=== PATIENT | female | born 1980 | race Caucasian/White ===

== ENCOUNTER 2017-01-06 22:33 | Emergency (ER) | payer OTHER ==
[~2017-01-06] VITALS: Ht 162.6 cm; Wt 84.7 kg
[~2017-01-06 22:33] MED LIST: CALCTAB5 PO; MTR600X PO; OXYC5TAB PO; PRENTAB26 PO
[2017-01-06 22:43] VITALS: TEMP 37.1; Ht 162.6 cm; Wt 84.7 kg
[2017-01-07] MEDS ORDERED: CHOL2000 PO (00:08)
[2017-01-07] MEDS ORDERED: OSEL75CA12 PO (00:41)
[2017-01-07] MEDS ORDERED: OSELTAMIVIR PHOSPHATE 75 MG CAP PO STA (00:41)
[2017-01-07 01:03] VITALS: BP 117/69; PULSE 82; O2SAT 95
[2017-01-07 01:52] LABS: INFLUENZA A PCR Neg for Influ A (NEG); INFLUENZA B PCR Neg for Influ B (NEG)
--- NOTE | 2017-01-07 05:18 | EMERGENCY ROOM VISIT NOTE ---
History First contact with patient: 23:29 Chief Complaint: FEVER Stated Complaint: FEVER, CHILLS, COUGH, SORE THROAT History of Present Illness The patient is a 36 year old female who presents to the Emergency Room with complaints of fever, chills, cough, congestion body aches and pains for the past day. Her child was sick with similar symptoms. She did receive the flu vaccine. Patient denies neck stiffness, sore throat, chest pain, dyspnea, abdominal pain, vomiting, diarrhea. No recent travel. Review of Systems See HPI for pertinent positives & negatives. A total of 10 systems reviewed and were otherwise negative. Past Medical/Surgical History Medical Problems: (1) No pertinent past medical history (2) Oligohydramnios Social History Smoking Status: Former Smoker Alcohol Use: occasionally Marital Status: single Occupation Status: employed Current/Historical Medications Scheduled Cholecalciferol (Vitamin D3), 2,000 INTER.UNIT PO DAILY Oseltamivir (Tamiflu), 75 MG PO BID Allergies Coded Allergies: Penicillins (Unverified Allergy, Mild, 01/07/17) Sulfa Drugs (Unverified Allergy, Mild, 01/07/17) Physical Exam Vital Signs Date Time Temp Pulse Resp B/P Pulse Ox O2 Delivery O2 Flow Rate FiO2 01/07/17 01:03 82 20 117/69 95 01/06/17 22:43 37.1 81 18 138/82 95 Room Air Pain Rating (0-10): 0 Physical Exam VITALS: Vitals are noted on the nurse's note and reviewed by myself. Vital signs stable. GENERAL: Pleasant female mildly ill-appearing, in no acute distress, nondiaphoretic, well-developed well-nourished. SKIN: The skin was without rashes, erythema, edema, or bruising. There is no tenting of the skin. Capillary reflex less than 2 seconds. HEAD: Normocephalic atraumatic. EARS: External auditory canals clear, tympanic membranes pearly cameron without erythema or effusion bilaterally. EYES: Pupils equal round and reactive to light and accommodation. Conjunctivae without injection, sclerae without icterus. Extraocular movements intact. NOSE: Patent, turbinates without inflammation or discharge. No sinus tenderness. MOUTH: Mucous membranes moist. Pharynx without erythema or exudate. Uvula midline. Airway patent. Tongue does not deviate. NECK: Supple without nuchal rigidity. No lymphadenopathy. No thyromegaly. Cervical spine is nontender. No JVD. HEART: Regular rate and rhythm without murmurs gallops or rubs. LUNGS: Clear to auscultation bilaterally without wheezes, rales or rhonchi. No dullness to percussion. No retractions or accessory muscle use. ABDOMEN: Positive bowel sounds x 4. Normal tympanic percussion. Soft, nontender, without masses or organomegaly. Ledezma sign negative. No guarding or rebound tenderness. MUSCULOSKELETAL: No muscle atrophy, erythema, or edema noted. NEURO: Patient was alert and oriented to person place and time. Normal sensation to light and sharp touch. No focal neurological deficits. Medical Decision & Procedures Laboratory Results Test 01/06/17 23:45 Influenza Type A (RT-PCR) Neg for Influ A (NEG) Influenza Type A Antigen Neg for Influ A (NEG) Influenza Type B Antigen Neg for Influ B (NEG) Influenza Type B (RT-PCR) Neg for Influ B (NEG) Medications Administered Medications (Trade) Dose Ordered Sig/Jesse Route Start Time Stop Time Status Last Admin Dose Admin Oseltamivir Phosphate (Tamiflu Cap) 75 mg NOW STAT PO 01/07/17 00:41 01/07/17 00:42 DC 01/07/17 00:53 75 MG ED Course Prior records/ancillary studies reviewed. Triage Nursing notes reviewed. Additional history obtained from family The patient's history was concerning for fever. Differential diagnosis: Etiologies such as viral syndrome, otitis, pharyngitis, pneumonia, influenza, meningitis, urinary tract infection, sepsis, bacteremia, as well as others were entertained. Physical examination: As above ER treatment provided: Tamiflu On reassessment the patient felt better. Diagnostics interpreted by me: The labs revealed negative influenza but child was positive for influenza This appears to be consistent with influenza. This could be a false negative. Child is positive for influenza. Symptoms and history seem consistent with influenza. She's been around other people who are positive for influenza A. Patient was started on antivirals. She is advised to take medications as directed, rest, stay well-hydrated and to take all medicines as directed. She is advised to follow-up with family care in a few days or here in the ER sooner for high fevers, lethargy, vomiting, neck stiffness, worsening signs or symptoms or as needed. By the evaluation outlined above emergent etiologies such as otitis, pharyngitis, pneumonia, meningitis, urinary tract infection, sepsis, bacteremia, as well as others were deemed relatively unlikely. The pt informed about the findings as listed above. All questions were answered and pleased with the treatment. Return instructions were outlined and the patient was discharged in stable condition. Outpatient prescription management: Tamiflu Referral: The patient was referred back to their primary care physician for follow-up in 2 to 3 days for a recheck of the current condition. Medical Decision As above Impression Primary Impression: Influenza Departure Information Dispostion Home / Self-Care Condition GOOD Prescriptions Oseltamivir (Tamiflu) 75 Mg Cap 75 MG PO BID for 5 Days, #10 CAP Prov: Ximena Kaba .MINERVA 01/07/17 Forms HOME CARE DOCUMENTATION FORM, Work Instructions, Return To Work: 2 days IMPORTANT VISIT INFORMATION Patient Instructions Fever - [facility], Former[facility], Rapid Influenza Antigen Nasal or Throat Swab Additional Instructions Tamiflu 75 m tablet twice a day for 5 days.Any medication can cause an allergic reaction, stop the pills immediately and return to the ER for rash, hives, breathing difficulties, or swelling. Acetaminophen(Tylenol) may be used for fever or pain. Use 1000mg every six hours as needed. Avoid using more than 3000mg in a 24 hour period. (AND/OR) Ibuprofen(Motrin, Advil) may be used for fever or pain. Use 600mg every six hours as needed. Take with food. Avoid using more than 2400mg in a 24 hour period. Do not use 2400mg per day for more than three consecutive days without physician direction. Prolonged inappropriate use can lead to stomach upset or ulcers. Afrin nasal spray: 2-3 sprays to each nostril twice daily as needed for congestion. Do not use for more than 3-4 days because it can lead to worsening rebound congestion. Pseudoephedrine(Sudaphed): 30-60mg every 6 hours as needed for nasal congestion. Do not take this with other stimulant products or supplements. Rest and drink plenty of fluids. Controlling your fever with Tylenol and Ibuprofen as above will make you feel better. Wash your hands after nose blowing, sneezing, or coughing. Most germs are spread through contact, therefore improper hygiene may result in your close contacts and loved ones becoming ill just like you. Continue current medications. Return to the ER for severe headache, neck stiffness, chest pain, difficulty breathing, fevers, vomiting, worsening of your condition, or as needed. Follow up with your primary physician this week for a recheck of your current condition. Work Instructions Return To Work: 2 days
== END 2017-01-07 01:05 | disposition home or self-care (01) ==
LOC: C.EDB 22:34 → C.EDC 01-07 01:05
DX: J11.1 Influenza due to unidentified influenza virus with other respiratory manifestations (principal); Z87.891 Personal history of nicotine dependence

== ENCOUNTER 2020-06-17 15:33 | Inpatient (IN) ==
[~2020-06-17 15:33] MED LIST changes: -CALCTAB5 PO; +CEFAZOLIN 2000MG 2,000 MG/15 ML SYR IV SCH; +CITRIC ACID/SODIUM CITRATE 15 ML UDC PO SCH; -MTR600X PO; -OXYC5TAB PO; -PRENTAB26 PO
--- OUTSIDE RECORDS SUMMARY | 2020-06-17 15:36 | External Medical Summary | Continuity of Care Document ---
:1980 Author Name Patricia M.Terrence Address Unavailable Unavailable , Care Team Providers Name Role Phone [facility] M.D. Unavailable [email or web address] Loss Of Hair From Head Depression (311) (F32.9) Abnormal menses (626.9) (N92.6) Encounter for screening for infections w ith predominantly sexual mode of transmission (V74.5) (Z11.3) Encounter for initial prescription of contraceptives (V25.02 ) (Z30.019) Abnormal weight gain (783.1) (R63.5) Allergic conjunctivitis (372.14) (H10.10) of unknown anatomic location (V23.87) (O36.80X0) Encounter for routine pelvic examination (V72.31) (Z01.419) Screening for STD (sexually transmitted disease) (V74.5) (Z1 1.3) Abnormal uterine bleeding (626.9) (N93.9) Allergies and Adverse Reactions Erythromycin Derivatives (Allergy) Penicillins (Allergy) Sulfa Drugs (Allergy) Medications No Reported Medications Refills: 0 Procedures History of Colposcopy Status: Completed History of Cervix Cryosurgery Status: Co mpleted Encounter for initial prescription of contraceptives History of Section Status: Comp leted History of wisdom tooth extraction Statu s: Completed Immunizations Tdap On: 28-Dec-2009 Tdap On: 11-Mar-2016 Influenza On: 03-Oct-2017 Family History Brother Family history of Type 1 Diabetes Mellitus Status: Active Grandmother Family history of Breast Cancer (V16.3) Status: Active Grandmother Family history of Breast Cancer (V16.3) Status: Active Father Family history of Alcohol abuse (305.00) (F10.10) Status: Ac tive Grandmother Family history of malignant neoplasm (V16.9) (Z80.9) Status: Active Social History - Smoking Status Ex-smoker Plan of Treatment Planned Observations Planned Goals not documented Results No Known Results Results not documented Encounters Appointment; Martín Otero M.D. 01-Nov-2018 16:00 Encounter Diagnosis: Problem not documented Appointment; Gisela Bingham CRNP 24-Oct-2018 8:20 Encounter Diagnosis: Problem not documented
[2020-06-17] MEDS ORDERED: LACTATED RINGER'S 1,000 ML IV SCH ×2 (16:00→19:15)
--- NOTE | 2020-06-17 16:08 | History & Physical Report ---
Date of Service June 17, 2020 Assessment & Plan (1) Oligohydramnios: 40 yo at 40.3 wks with h/o placental abruption, Prior C section, now with oligohydramnios Desires repeat Csection, declines TOLAC/ See HPI VSS Afebrile doing well FHR reassuring Plan to admit, monitor and get ready for Repeat Csection All questions were answered (2) History of delivery: (3) History of placenta abruption: History of Present Illness Primary Care Provider: Hermelindo Zhao, III, AUTHORIZER Patient is a 40 yo female at 40.3 wks who was sent from office for SARA of 3 cm and reactive NST. She has no complaints, but has concerns. No ctxs/ LOF/VB +FM's 1) She has h/o Prior Csection which was done as emergency due to hemorrhage, placenta abruption during induction of labor with Cervidil. She was planning for TOLAC/ if she would come in labor. Now she is concerned about IOL due to her history above and not in labor today She desires Repeat section Understands the risks of major surgery as bleeding, infection, injury to surrounding organs, bowels, bladder, ureters, blood cloths in legs/ lungs, adhesion and scar formation. All questions were answered. 2) AMA 3) Asthma 4) Anxiety depression, not on meds 5) GBS+ 6)ADHD Allergies Allergy/AdvReac Type Severity Reaction Status Date / Time Penicillins Allergy Mild Unverified 01/07/17 00:09 Sulfa (Sulfonamide Allergy Mild Unverified 01/07/17 00:09 Antibiotics) Home Medications Home Medications Medication Instructions Recorded Confirmed Type CHOLECALCIFEROL (VITAMIN D3) 2,000 inter.unit PO DAILY 90 Days 01/07/17 History #0 cap Patient History Social History Smoking Status: Never smoker Review of Systems All systems reviewed & are unremarkable except as noted in HPI & below Physical Exam Constitutional: WD/WN, vitals as above well developed and well nourished Comfortable, NAD Gastrointestinal (Abdomen): normal bowel sounds, soft, nontender, no hepatosplenomegaly (Gravid) Genitourinary: OB Exam Monitor Tracing: + external uterine monitor used (no ctxs) and + category I Results & Data Vital Signs (Past 12 Hours) Vital Signs Temp Pulse Resp BP 06/17/20 15:34 36.8 C 79 20 111/62
[2020-06-17 16:21] LABS: Basophils # (auto) 0.02 K/uL (0-0.2); Basophils % (auto) 0.2 %; Eosinophils # (auto) 0.15 K/uL (0-0.5); Eosinophils % (auto) 1.7 %; Hematocrit (blood only) 36.6 % (37-47); Hemoglobin 12.4 g/dL (12.0-16.0); Immature Granulocytes # (auto) 0.04 K/uL (0.00-0.02); Immature Granulocytes % (auto) 0.4 %; Lymphocytes # (auto) 2.45 K/uL (1.2-3.4); Lymphocytes % (auto) 27.1 %; Mean Corpuscular Hemoglobin 31.1 pg (25-34); Mean Corpuscular Volume 91.7 fL (80-100); Mean Platelet Volume 8.8 fL (7.4-10.4); Monocytes # (auto) 0.47 K/uL (0.11-0.59); Monocytes % (auto) 5.2 %; Neutrophils # (auto) 5.91 K/uL (1.4-6.5); Neutrophils % (auto) 65.4 %; Platelet Count 290 K/uL (130-400); RDW Coefficient of Variation 12.1 % (11.5-14.5); Red Blood Count 3.99 M/uL (4.2-5.4); White Blood Count 9.04 K/uL (4.8-10.8)
[2020-06-17 16:29] LABS: Mean Corpuscular Hgb Conc 33.9 g/dL (32-36)
[2020-06-17] MEDS ORDERED: ONDANSETRON INJ 2 MG/ML 2 ML VIAL ONE (17:15)
[2020-06-17] MEDS ORDERED: OXYTOCIN 10 UNITS/ML VIAL ONE (17:15)
[2020-06-17] MEDS: LACTATED RINGER'S 1,000 ML IV SCH (17:15)
[2020-06-17] MEDS ORDERED: PHENYLEPHRINE 100MCG/ML 5ML SYR ONE (17:15)
[2020-06-17] MEDS ORDERED: fentaNYL citrate 100 MCG/2 ML VIAL ONE (17:16)
[2020-06-17] MEDS ORDERED: MoRPHine SULFATE PF 1 MG/ML 10 ML AMP/VIAL ONE (17:16)
--- NOTE | 2020-06-17 17:26 | Anesthesiology Consultation ---
Date of Service June 17, 2020 Assessment & Plan (1) Encounter for pre-operative examination: Chart Review Chart Review: Acceptable Risk for Surgery and Patient NOT seen in Pre Admission Testing Consults Requested none History Surgery Operation Date: 06/17/20 15:55 Proposed Procedures p Section in LD - Sunny Espinosa MD Height/Weight Height: 5 ft 3.75 in Weight: 79.832 kg Allergies Allergy/AdvReac Type Severity Reaction Status Date / Time Penicillins Allergy Mild Rash Unverified 06/17/20 16:40 Sulfa (Sulfonamide Allergy Mild Rash Unverified 06/17/20 16:40 Antibiotics) Medications Home Medications Medication Instructions Recorded Confirmed Last Taken PNV cmb#95-ferrous fumarate-FA 1 tab PO DAILY 06/17/20 06/17/20 06/16/20 22:30 [] ascorbic acid (vitamin C) [Vitamin 500 mg PO DAILY 06/17/20 06/17/20 06/16/20 10:00 C] docusate sodium [Colace] 100 mg PO DAILY 06/17/20 06/17/20 06/16/20 10:00 ferrous sulfate [iron] 325 mg PO DAILY 06/17/20 06/17/20 06/16/20 10:00 NPO Date Last Intake of Fluids: 06/17/20 Time Last Intake of Fluids: 15:00 Date Last Intake of Solids: 06/17/20 Time Last Intake of Solids: 08:00 Past Medical History Medical History ADHD AMA (advanced maternal age) multigravida 35+ Anxiety and depression Asthma Oligohydramnios Thyroid nodule Exercise / Class Metabolic Activity II 4-5 Yardwork/Stairs/Walk up hill Past Family History Family History Mother Diabetes Brother Diabetes Grandmother Breast cancer Grandmother (Paternal) Breast cancer Past Surgical History Surgical History Previous section [place] teeth removed Past Anesthesia History No Hx of Anesthesia Complications and No Family Hx of Anesthesia Complications History of PONV No Hx of PONV and No Hx of Motion Sickness Social History Smoking Status: Never smoker tobacco type: cigarettes Smoking End Date: 9 years ago Hx Alcohol Use: No Hx Substance Use: No Physical Exam Vital Signs Last Vital Signs Temp 36.8 C 06/17/20 15:41 Pulse 79 06/17/20 15:41 Resp 20 06/17/20 15:41 BP 111/62 06/17/20 15:41 Testing Laboratory Results 06/17/20 16:09
[2020-06-17] MEDS ORDERED: NALOXONE HCL 0.08 MG in SYRINGE 1.8 ML IV PRN (18:15)
[2020-06-17] MEDS ORDERED: MEPERIDINE HCL 25 MG/ML CARP/VIAL IV PRN (18:15)
[2020-06-17] MEDS ORDERED: DiphenhydrAMINE HCL 50 MG/ML VIAL IV PRN (18:15)
[2020-06-17] MEDS ORDERED: MoRPHine SULFATE 2 MG/ML CARP IV PRN (18:15)
[2020-06-17] MEDS ORDERED: NALOXONE HCL 1 MG in SODIUM CHLORIDE 0.9% 1000ML 1,000 ML IV PRN (18:15)
[2020-06-17] MEDS ORDERED: LACTATED RINGER'S 500 ML IV PRN (18:15)
[2020-06-17] MEDS ORDERED: PROMETHAZINE HCL 25 MG in SODIUM CHLORIDE 0.9% 50 ML IV PRN (18:15)
[2020-06-17] MEDS ORDERED: NALOXONE HCL 0.4 MG/1 ML VIAL/CARP IV PRN (18:15)
[2020-06-17] MEDS ORDERED: SODIUM CHLORIDE 0.9% 1000ML 1,000 ML IV SCH (18:15)
[2020-06-17] MEDS ORDERED: MoRPHine SULFATE PF 1 MG/ML 10 ML AMP/VIAL INT SPINAL ONE (18:15)
[2020-06-17] MEDS ORDERED: NO NARCOTICS OR SEDATIVES SCH (18:15)
[2020-06-17] MEDS ORDERED: ONDANSETRON INJ 2 MG/ML 2 ML VIAL IV PRN (18:15)
[2020-06-17] MEDS ORDERED: ePHEDrine sulfate 50 MG/ML AMP IV PRN (18:15)
[2020-06-17] MEDS ORDERED: FLOSEAL HEMOSTATIC MATRIX 10ML TOP ONE (18:47)
[2020-06-17] MEDS ORDERED: MAGNESIUM HYDROXIDE SUSP 30 ML UDC PO PRN (19:15)
[2020-06-17] MEDS ORDERED: BENZOCAINE 20% AER SPR 82.5 GM CAN EXT PRN (19:15)
[2020-06-17] MEDS ORDERED: DIPHTHERIA/TETANUS/PERTUSSIS 0.5 ML SYR/VIAL IM ONE (19:15)
[2020-06-17] MEDS ORDERED: HYDROCORTISONE ACETATE 25 MG SUPP PR PRN (19:15)
[2020-06-17] MEDS ORDERED: MEASLES, MUMPS & RUBELLA VIRUS VIAL SQ ONE (19:15)
[2020-06-17] MEDS ORDERED: SUPERCREAM 0.870% 15 GM JAR EXT PRN (19:15)
[2020-06-17] MEDS ORDERED: SENNA 8.6 MG TAB PO PRN (19:15)
--- NOTE | 2020-06-17 19:15 | Post Operative Brief Note ---
Immediate Post Op Note v1 Date of Surgery June 17, 2020 Pre & Post Diagnosis Operation Date: 06/17/20 15:55 Pre-Op Diagnosis: Previous cesearan section. Desires repeat section Post-Op Diagnosis: same I identified the patient and participated in the time-out.: Yes Procedure Operation Date: 06/17/20 15:55 Actual Procedures p Repeat cesearan section for living female child at 1827 - Sunny Morel MD Surgeon Sunny Espinosa MD Mill [employer]er Donna Quigley RN Estimated Blood Loss 600 Findings Consistent with Post-Op Diagnosis Drains Oneal Catheter (inserted following spinal analgesia without difficulty. Draining clear yellow urine. Anesthesia to monitor urine output intraoperatively) Anesthesia Type Spinal Disposition Accompanied Patient To Recovery: Yes Disposition: L&D
[2020-06-17] MEDS: OXYTOCIN 20 UNITS in LACTATED RINGER'S 1,000 ML IV SCH (19:48)
--- NOTE | 2020-06-17 20:20 | Anesthesiology Progress Note ---
Date of Service June 17, 2020 Anesthesia Post Procedure Vital Signs Vital Signs: Temp Pulse Resp BP Pulse Ox 06/17/20 20:16 75 96 06/17/20 20:14 74 18 117/53 L 06/17/20 20:11 73 96 06/17/20 20:06 72 97 06/17/20 20:03 74 18 109/65 06/17/20 20:01 72 97 06/17/20 19:56 75 96 06/17/20 19:54 77 18 108/62 06/17/20 19:51 80 100 06/17/20 19:46 71 98 06/17/20 19:43 74 18 110/59 L 06/17/20 19:41 80 99 06/17/20 19:36 80 100 06/17/20 19:33 72 18 114/63 06/17/20 19:31 77 89 L 06/17/20 19:26 69 98 06/17/20 19:22 36.5 C 72 18 109/56 L 06/17/20 15:41 36.8 C 79 20 111/62 06/17/20 15:34 36.8 C 79 20 11162 Transfer of Care Handoff Completed per policy Notes Mental Status: alert / awake / arousable and participated in evaluation Patient Amnestic to Procedure: No Nausea / Vomiting: adequately controlled Pain: adequately controlled Airway Patency, RR, SpO2: stable & adequate BP & HR: stable & adequate Hydration State: stable & adequate Neuraxial Anesthesia: was administered and sensory block is resolving Anesthetic Complications: no major complications apparent and Pt Satisfied with anesthetic care
[2020-06-17] MEDS: KETOROLAC 30 MG/ML VIAL IV PRN (21:02)
--- NOTE | 2020-06-18 01:30 | Operative Report (OR) ---
DATE OF OPERATION: 06/17/2020 PREOPERATIVE DIAGNOSES: The patient is a 40-year-old G4, P1-0-2-1 at 40 weeks and 3 days of gestation with oligohydramnios. History of prior and placental abruption. Desires repeat . POSTOPERATIVE DIAGNOSES: The patient is a 40-year-old G4, P1-0-2-1 at 40 weeks and 3 days of gestation with oligohydramnios. History of prior and placental abruption. Desires repeat . PROCEDURE: Repeat low transverse with Pfannenstiel skin incision. SURGEON: Sunny Espinosa MD ANALYST COMPETITIVE INTELLIGENCE: Donna Quigley RN ESTIMATED BLOOD LOSS: 600 mL. DRAINS: Oneal catheter drained 100 mL of clear urine. ANESTHESIA: Spinal, Dr. Amador. COMPLICATIONS: None. FINDINGS: Baby was a viable female , Apgars 9/9, delivered in cephalic presentation, weight was 3520 grams. Maternal findings, normal uterus, fallopian tubes and ovaries. DESCRIPTION OF PROCEDURE: The patient was taken to the operating room where spinal anesthesia was given without difficulty. She was placed in dorsal supine position with a leftward tilt. She was prepared and draped in usual sterile fashion. Pfannenstiel skin incision was made from the old incision scar. It was carried through to the underlying layer of fascia with the Bovie. Fascia was incised in the midline and incision was extended laterally with the help of Bowers scissors. Lower aspect of the fascial incision was then grasped with 2 Aashish clamps, elevated, underlying rectus muscles were dissected off sharply with Bowers scissors. Upper aspect of the fascial incision was grasped with 2 Aashish clamps, elevated, underlying rectus muscles were dissected off sharply with Bowers scissors. Rectus muscles were in the midline. Peritoneum was entered bluntly. Peritoneal incision was extended superiorly and inferiorly with good visualization of the bladder. Bladder blade was inserted. Vesicouterine peritoneum was identified, grasped with pickups, entered sharply with Metzenbaum scissors. Bladder flap was created digitally and bladder blade was reinserted. Lower uterine segment was incised in a transverse fashion, then uterine incision was extended laterally with the help of fingers. Membranes were ruptured, clear fluid was obtained and and baby's head was delivered without difficulty. Shoulders were delivered with minimal traction and mouth and nose were suctioned. Cord was clamped x2 and cut at 1-minute delay. Baby was handed to the waiting property disposal manager and nursery team. Placenta was delivered manually as intact and complete. Uterus was exteriorized, cleared of all clots and debris. Uterine incision was repaired with 0 Vicryl in a running locked fashion and a second imbricating layer was placed with another 0 Vicryl in a running locked fashion. Figure of 8 stitches were placed in the middle of incision. Excellent hemostasis was achieved. Posterior cul-de-sac was irrigated with normal saline and suctioned. Ovaries and fallopian tubes were found to be normal and then uterus was returned to the abdomen. Pelvis was irrigated with warm normal saline and suctioned and uterine incision was inspected for several minutes and it was hemostatic. Parietal peritoneum was reapproximated with 0 Vicryl in a running fashion bringing the rectus fascia with the same suture in a running fashion. Under the fascia and rectus muscles were hemostatic. Rectus fascia was reapproximated with 0 Vicryl in a running fashion. Subcuticular Fat tissue was reapproximated with 3-0 Vicryl in a running fashion. Skin was closed with 4-0 Monocryl in a subcuticular fashion. The patient tolerated the procedure well. Sponge, lap, needle count was correct x3. Mom and baby tolerated the procedure well. Mom was taken to recovery room in stable condition. No complications happened and I was present during whole procedure. I attest to the content of the Intraoperative Record and any orders documented therein. Any exceptions are noted below. LUCIA
[2020-06-18] MEDS: DOCUSATE SODIUM 100 MG CAP PO SCH ×3 (03:10→19:50)
[2020-06-18] MEDS: SIMETHICONE 80 MG CHEW PO SCH ×5 (03:10→19:50)
[2020-06-18] MEDS: LACTATED RINGER'S 1,000 ML IV SCH (03:54)
[2020-06-18] MEDS: OXYTOCIN 20 UNITS in LACTATED RINGER'S 1,000 ML IV SCH (03:56)
[2020-06-18] MEDS: KETOROLAC 30 MG/ML VIAL IV PRN (05:07)
--- NOTE | 2020-06-18 06:00 | Obstetrical Progress Note ---
Date of Service June 18, 2020 Assessment & Plan Admission and Anticipated Discharge Date Admission Date: June 17, 2020 Subjective Patient is seen and examined. She feels well, no complaints. No Pain. Not OOB Bleeding is minimal No fever/ chills/ CP/ SOB/ dizziness/N&V/ Leg pain Breast feeding without problems Vital Signs Temp Pulse Pulse Resp BP BP Pulse Ox 06/18/20 05:00 16 99 06/18/20 02:50 36.8 C 74 16 119/75 97 06/18/20 01:55 14 99 06/18/20 00:50 16 100 06/17/20 23:45 16 99 06/17/20 22:45 16 99 06/17/20 22:15 36.7 C 72 18 111/65 99 06/17/20 22:00 18 100 06/17/20 21:31 72 18 110/63 98 06/17/20 21:26 88 98 06/17/20 21:21 75 98 06/17/20 21:16 72 99 06/17/20 21:11 74 97 06/17/20 21:06 69 98 06/17/20 21:01 75 97 06/17/20 20:56 71 98 06/17/20 20:53 78 18 114/66 06/17/20 20:51 71 98 06/17/20 20:46 74 96 06/17/20 20:41 83 97 06/17/20 20:39 77 94 06/17/20 20:36 80 96 06/17/20 20:31 91 H 96 06/17/20 20:26 70 96 06/17/20 20:23 77 18 129/55 L 06/17/20 20:21 85 91 06/17/20 20:20 87 94 06/17/20 20:16 75 96 06/17/20 20:14 74 18 117/53 L 06/17/20 20:11 73 96 06/17/20 20:06 72 97 06/17/20 20:03 74 18 109/65 06/17/20 20:01 72 97 06/17/20 19:56 75 96 06/17/20 19:54 77 18 108/62 06/17/20 19:51 80 100 06/17/20 19:46 71 98 06/17/20 19:43 74 18 110/59 L 06/17/20 19:41 80 99 06/17/20 19:36 80 100 06/17/20 19:33 72 18 114/63 06/17/20 19:31 77 89 L 06/17/20 19:26 69 98 06/17/20 19:22 36.5 C 72 18 109/56 L 06/17/20 15:41 36.8 C 79 20 111/62 06/17/20 15:34 36.8 C 79 20 111/62 Intake and Output 06/17/20 06/17/20 06/18/20 14:59 22:59 06:59 Intake Total 2001 Output Total 250 / 250 Balance -250 / 1752 2001 Intake: IV 2001 Lr 1,000 ml @ 125 mls/hr IV . 1000 / 1000 Q8H DEREK Rx#:[id number] Pitocin 20 Units In Lr 1,000 ml 1002 / 1002 @ 125 mls/hr IV .Q8H1M DEREK Rx# :[id number] Output: Urine Amount (Catheter) 250 / 250 Oneal/Indwelling 250 / 250 Other: Weight 79.832 kg Patient Weight 06/18/20 06:59 Weight 79.832 kg Intake & Output 06/17/20 06/17/20 06/18/20 14:59 22:59 06:59 Intake Total 2001 Output Total 250 / 250 Balance -250 / 1752 2001 Weight 79.832 kg Intake: IV 2001 Lr 1,000 ml @ 125 mls/hr IV . 1000 / 1000 Q8H DEREK Rx#:[id number] Pitocin 20 Units In Lr 1,000 ml 1002 / 1002 @ 125 mls/hr IV .Q8H1M DEREK Rx# :[id number] Output: Urine Amount (Catheter) 250 / 250 Oneal/Indwelling 250 / 250 Lab Results 06/17/20 06/17/20 06/17/20 Range/Units 16:09 16:09 16:29 WBC 9.04 (4.8-10.8) K/uL RBC 3.99 L (4.2-5.4) M/uL Hgb 12.4 (12.0-16.0) g/dL Hct 36.6 L (37-47) % MCV 91.7 (80-100) fL MCH 31.1 (25-34) pg MCHC 33.9 (32-36) g/dL RDW Std Deviation 41.0 (36.4-46.3) fL RDW Coeff of Iam 12.1 (11.5-14.5) % Plt Count 290 (130-400) K/uL MPV 8.8 (7.4-10.4) fL Immature Gran % (Auto) 0.4 % Neut % (Auto) 65.4 % Lymph % (Auto) 27.1 % Love % (Auto) 5.2 % Eos % (Auto) 1.7 % Baso % (Auto) 0.2 % Neut # (Auto) 5.91 (1.4-6.5) K/uL Lymph # (Auto) 2.45 (1.2-3.4) K/uL Love # (Auto) 0.47 (0.11-0.59) K/uL Eos # (Auto) 0.15 (0-0.5) K/uL Baso # (Auto) 0.02 (0-0.2) K/uL Immature Gran # (Auto) 0.04 H (0.00-0.02) K/uL COVID-19 PCR NEGATIVE (Negative) Blood Type O Positive Antibody Screen NEGATIVE PE: General: Alert, orientedx3, NAD CVS: S1S2 RRR Lungs; CTAB Abd: soft, NT, ND, BS+, fundus firm, below Umbilicus Incision/ Dressing: Clean, dry, intact Perineum intact, Lochia rubra minimal Ext; NT, no edema, SCD's on AP: 40 yo s/p RC Section, pod# 1 VSS Afebrile doing well Continue routine postop care Encourage ambulation, PO intake All questions were answered Results & Data ([facility]) Vital Signs (Past 12 Hours) Vital Signs Temp Pulse Pulse Resp BP BP Pulse Ox 06/18/20 05:00 16 99 06/18/20 02:50 36.8 C 74 16 119/75 97 06/18/20 01:55 14 99 06/18/20 00:50 16 100 06/17/20 23:45 16 99 06/17/20 22:45 16 99 06/17/20 22:15 36.7 C 72 18 111/65 99 06/17/20 22:00 18 100 06/17/20 21:31 72 18 110/63 98 06/17/20 21:26 88 98 06/17/20 21:21 75 98 06/17/20 21:16 72 99 06/17/20 21:11 74 97 06/17/20 21:06 69 98 06/17/20 21:01 75 97 06/17/20 20:56 71 98 06/17/20 20:53 78 18 114/66 06/17/20 20:51 71 98 06/17/20 20:46 74 96 06/17/20 20:41 83 97 06/17/20 20:39 77 94 06/17/20 20:36 80 96 06/17/20 20:31 91 H 96 06/17/20 20:26 70 96 06/17/20 20:23 77 18 129/55 L 06/17/20 20:21 85 91 06/17/20 20:20 87 94 06/17/20 20:16 75 96 06/17/20 20:14 74 18 117/53 L 06/17/20 20:11 73 96 06/17/20 20:06 72 97 06/17/20 20:03 74 18 109/65 06/17/20 20:01 72 97 06/17/20 19:56 75 96 06/17/20 19:54 77 18 108/62 06/17/20 19:51 80 100 06/17/20 19:46 71 98 06/17/20 19:43 74 18 110/59 L 06/17/20 19:41 80 99 06/17/20 19:36 80 100 06/17/20 19:33 72 18 114/63 06/17/20 19:31 77 89 L 06/17/20 19:26 69 98 06/17/20 19:22 36.5 C 72 18 109/56 L
[2020-06-18 06:51] LABS: Basophils # (auto) 0.02 K/uL (0-0.2); Basophils % (auto) 0.2 %; Eosinophils # (auto) 0.11 K/uL (0-0.5); Eosinophils % (auto) 0.9 %; Hemoglobin 10.9 g/dL (12.0-16.0); Immature Granulocytes # (auto) 0.03 K/uL (0.00-0.02); Immature Granulocytes % (auto) 0.2 %; Lymphocytes % (auto) 16.5 %; Mean Corpuscular Hemoglobin 31.1 pg (25-34); Mean Corpuscular Hgb Conc 34.1 g/dL (32-36); Mean Corpuscular Volume 91.2 fL (80-100); Mean Platelet Volume 8.6 fL (7.4-10.4); Monocytes # (auto) 0.59 K/uL (0.11-0.59); Monocytes % (auto) 4.6 %; Neutrophils # (auto) 9.89 K/uL (1.4-6.5); Neutrophils % (auto) 77.6 %; Platelet Count 207 K/uL (130-400); RDW Coefficient of Variation 12.1 % (11.5-14.5); RDW Standard Deviation 39.8 fL (36.4-46.3); Red Blood Count 3.51 M/uL (4.2-5.4); White Blood Count 12.74 K/uL (4.8-10.8)
--- NOTE | 2020-06-18 08:58 | Obstetrical Progress Note ---
Date of Service June 18, 2020 Assessment & Plan Admission and Anticipated Discharge Date Admission Date: June 17, 2020 Physical Exam Physical Exam: abdomen soft and non tender bowel sounds are present patient is not passing flatus no calf tenderness bandage removed incision is clean and dry vaginal bleeding scant hgb 10.9 Results & Data ([facility]) Vital Signs (Past 12 Hours) Vital Signs Temp Pulse Pulse Resp BP BP Pulse Ox 06/18/20 06:00 16 97 06/18/20 05:00 16 99 06/18/20 02:50 36.8 C 74 16 119/75 97 06/18/20 01:55 14 99 06/18/20 00:50 16 100 06/17/20 23:45 16 99 06/17/20 22:45 16 99 06/17/20 22:15 36.7 C 72 18 111/65 99 06/17/20 22:00 18 100 06/17/20 21:31 72 18 110/63 98 06/17/20 21:26 88 98 06/17/20 21:21 75 98 06/17/20 21:16 72 99 06/17/20 21:11 74 97 06/17/20 21:06 69 98 06/17/20 21:01 75 97 06/17/20 20:56 71 98
[2020-06-18] MEDS: FERROUS SULFATE 325 MG TAB PO SCH (09:13)
[2020-06-18] MEDS: PRENATAL VITAMIN 1 TAB PO SCH (09:13)
[2020-06-18] MEDS ORDERED: MEPERIDINE HCL 50 MG/ML CARP IV PRN (12:15)
[2020-06-18] MEDS ORDERED: PROMETHAZINE HCL 25 MG in SODIUM CHLORIDE 0.9% 50 ML IV PRN (12:15)
[2020-06-18] MEDS ORDERED: DC INTRASPINAL MORPHINE SCH (12:15)
[2020-06-18] MEDS ORDERED: DiphenhydrAMINE HCL 50 MG/ML VIAL IV PRN (12:16)
[2020-06-18] MEDS ORDERED: KETOROLAC 30 MG/ML VIAL IV PRN (12:16)
[2020-06-18] MEDS ORDERED: ONDANSETRON INJ 2 MG/ML 2 ML VIAL IV PRN (12:16)
[2020-06-18] MEDS: IBUPROFEN 600 MG TAB PO PRN ×3 (12:50→21:49)
[2020-06-18] MEDS ORDERED: bisacodyL 5 MG TABEC PO SCH (20:00)
[2020-06-18] MEDS: OXYCODONE/ACETAMINOPHEN 5mg/325mg TAB PO PRN (21:50)
[2020-06-19] MEDS: IBUPROFEN 600 MG TAB PO PRN ×3 (04:25→12:28)
[2020-06-19 06:40] LABS: Hematocrit (blood only) 34.2 % (37-47); Hemoglobin 11.5 g/dL (12.0-16.0)
[2020-06-19] MEDS: FERROUS SULFATE 325 MG TAB PO SCH (08:25)
[2020-06-19] MEDS: SIMETHICONE 80 MG CHEW PO SCH (08:26)
[2020-06-19] MEDS: PRENATAL VITAMIN 1 TAB PO SCH (08:27)
[2020-06-19] MEDS: DOCUSATE SODIUM 100 MG CAP PO SCH (08:27)
--- NOTE | 2020-06-19 09:07 | Obstetrical Progress Note ---
Date of Service June 19, 2020 Assessment & Plan (1) delivery delivered: c/sec day #2 pt wishes to be disch d/c home with instructions Subjective Ambulation: ambulating normally Voiding: no voiding problems Passing Gas:: Yes Diet Tolerance:: clear liquids Lochia:: Small Feeding Type:: breast feeding Review of Systems All systems reviewed & are unremarkable except as noted in HPI & below Physical Exam Constitutional WD/WN, vitals as above well developed and well nourished Eyes PERRL, conjunctivae normal, anicteric sclerae ENMT external ear and nose normal, oropharynx normal Neck trachea midline, no thyromegaly Respiratory normal respiratory effort, lungs clear to auscultation Cardiovascular RRR, no murmur, no edema Chest (Breasts) normal inspection/palpation of breasts Gastrointestinal (Abdomen) normal bowel sounds, soft, nontender, no hepatosplenomegaly Musculoskeletal no cyanosis or clubbing, extremities motor strength 5/5 Skin no rashes, warm and dry + incision (Clean,dry and intact) Neurologic patellar DTR's 2+ bilat, sensation intact Psychiatric A+Ox3, euthymic affect Genitourinary normal external appearance Lymphatic no cervical or axillary lymphadenopathy Results & Data Vital Signs (Past 12 Hours) Vital Signs Temp Pulse Resp BP Pulse Ox 06/19/20 07:30 36.8 C 69 16 96/61 L 97 06/18/20 23:35 36.7 C 78 16 110/66 97
[2020-06-19] MEDS: OXYCODONE/ACETAMINOPHEN 5mg/325mg TAB PO PRN (10:51)
[2020-06-19] MEDS ORDERED: bisacodyL 10 MG SUPP PR PRN (19:15)
--- NOTE | 2020-07-02 11:49 | Discharge Summary (DS) ---
DETAILS OF ADMISSION: The patient is a 40-year-old G4, P1-0-2-1, at 40 weeks and 3 days of gestation with history of prior , admitted for oligohydramnios and desired for repeat . She was taken to the OR on 06/17/2020 for a repeat low transverse and delivered a viable female with no complications. See dictated OP note for details. On postop period, the patient was doing well. Vital signs stable, afebrile. Urine output was good. Incision pain was under control with medications. She was without problems. On postop day #1, the patient was doing well. Vital signs stable, afebrile. Her hemoglobin was 10.9. Bleeding was minimal. Abdomen was soft, nontender, nondistended. Bowel sounds are present. Incision was clean, dry and intact. She was . She was ambulated, tolerated regular diet. On postop day #2, the patient was doing well. Vital signs stable, afebrile, passing gas, tolerating diet, without problems. She desired to be discharged on postop day #2. Discharge instructions were given. Prescriptions were written for pain. She is to be seen in the office in a week.
== END 2020-06-19 12:56 | disposition home or self-care (01) | DRG 788 ==
LOC: OPB 15:33 → 4S1 15:34 → 4S2 22:15